=== PATIENT | male | born 1940 | race Caucasian/White ===

== ENCOUNTER → 2016-10-19 | Outpatient (CLI) | payer OTHER, BC ==
[~2016-10-19] VITALS: Ht 188 cm; Wt 106.6 kg
[~2016-10-19] MED LIST: ASPIR 8181 MG PO; CENTRUM SILVER1 EAC2 PO; HYZAAR 100-12.1 EACH PO; LIPITOR10 MG PO; NORVASC5 MG PO; VITAMIN D-32000 UNIT PO
--- NOTE | ~2016-10-19 | S ---
[facility] [place] [address] SURGICAL PATH RPT PROCEDURE Name: PABLOISADWIGHT HERNANDEZ Room #: [facility].#: [id number] Admission: 10/19/16 Date of : 40 Discharge: Report #: [id number] Path Case #: [id number] PATHOLOGY REPORT COLLECTION DATE: 10/19/2016 RECEIVED DATE: 10/19/2016 SUBMITTING PHYS: Dr. Bob Blanco OTHER PHYS: Dr Misty Bravo SPECIMEN(S) RECEIVED: A.Bx of polyp at proximal transverse colon (forcep) B.Bx of polyp at 60 cm (forcep) * * * * * * * * * * * * FINAL DIAGNOSIS: A. Polyp, at proximal transverse colon, endoscopic biopsy: - Tubular adenoma. - Negative for high grade dysplasia. B. Polyp, at 60 cm, endoscopic biopsy: - Hyperplastic polyp. - Negative for dysplasia. (IUV/db; 10/22/2016) PATHOLOGIST: Nidia Brooks M.D. REPORT ELECTRONICALLY SIGNED BY: Nidia Brooks M.D. DATE/TIME: 10/22/2016 16:11 * * * * * * * * * * * * GROSS PATHOLOGY: A. Received in formalin labeled "Dwight Jennifer, biopsy polyp at proximal transverse colon," is a segment of brand soft tissue measuring 0.4 cm in maximum dimension. The specimen is submitted entirely in cassette A1. B. Received in formalin labeled "Dwight Jennifer, biopsy polyp at 60 cm," is a segment of brand soft tissue measuring 0.5 cm in maximum dimension. The specimen is submitted entirely in cassette B1. (KAH; 10/20/2016) CLINICAL HISTORY: Pre-op diagnosis: History of polyps Post-op diagnosis: Diverticulosis, polyps, hemorrhoids INITIAL CPT CODE(S): A; 74888 B; [id number] [address] SURGICAL PATH RPT PROCEDURE Name: JENNIFERDWIGHT Bower Room #: REG [facility]#: [id number] Admission: 10/19/16 Date of : 40 Discharge: Report #: [id number] Path Case #: [id number] Professional services performed by [facility] at [address] , [place] [address] Technical services performed by [facility] at [address] [place] [address], [facility] [address] [place] [address]. [facility] [address] [place] [address] PHONE: [phone] DIRECTOR: Frantz Bates M.D. * * * END OF REPORT * * *
== END | disposition home or self-care (01) ==
LOC: GI 08:19
DX: Z09 Encounter for follow-up examination after completed treatment for conditions other than malignant neoplasm (principal); Z86.010 Personal history of colon polyps; K64.9 Unspecified hemorrhoids; K57.30 Diverticulosis of large intestine without perforation or abscess without bleeding; D12.3 Benign neoplasm of transverse colon; D12.4 Benign neoplasm of descending colon
CPT/HCPCS: 62110; 62900